=== PATIENT | female | born 1955 | race Caucasian/White ===

== ENCOUNTER → 2020-01-17 | Outpatient (REF) | payer MEDICARE, BC ==
[~2020-01-17] MED LIST: LOSA100T50 PO; SUMA6INJ16 SC
== END ==
LOC: M LAB REF 10:00
PROVIDERS: ATTEND Dermatology
DX: C44.519 Basal cell carcinoma of skin of other part of trunk (principal)
CPT/HCPCS: 11102; 17000; 88305; G0463

== ENCOUNTER → 2020-03-02 | Outpatient (REF) | payer MEDICARE, BC | LOC: M LAB REF 13:39 | PROVIDERS: ATTEND Dermatology | DX: C44.509 Unspecified malignant neoplasm of skin of other part of trunk (principal) ==

== ENCOUNTER → 2020-09-14 | Outpatient (REF) | payer MEDICARE, BC ==
[~2020-09-14] MED LIST changes: +D31000TA2 PO
== END ==
LOC: M LAB REF 17:37
PROVIDERS: ATTEND Dermatology
DX: L57.0 Actinic keratosis (principal)

== ENCOUNTER → 2020-09-20 | Outpatient (CLI) | payer BC, MEDICARE ==
[~2020-09-20] MED LIST changes: -D31000TA2 PO
--- NOTE | 2020-09-20 13:53 | REP ---
INDICATION: PAIN. COMPARISON: None. TECHNIQUE: Internal rotation, external rotation, axillary and Y-views of the right shoulder. FINDINGS: Mild cortical irregularity at the acromioclavicular joint. Subacromial space is normal. Glenohumeral joint is normal. No periarticular calcifications or loose bodies are identified. No acute fracture or dislocation. IMPRESSION: Minimal age-related changes. <Electronically signed by Toby Issa > 09/20/20 [id number]
== END ==
LOC: M SOG 10:00
PROVIDERS: ATTEND Orthopaedic Surgery Sports Medicine
DX: M75.41 Impingement syndrome of right shoulder (principal)

== ENCOUNTER → 2020-09-24 | Outpatient (CLI) | payer MEDICARE, BC ==
--- NOTE | 2020-09-24 12:19 | REPMRS ---
Patient History The patient states she has not had a clinical breast exam in over a year. Patient is postmenopausal and is nulliparous. Family history of colorectal cancer at age 67 in father. Took estrogen for 16 years beginning at age 34. Patient's BMI is 22.4. Patient states no breast complaints today. Patient has signed MRS History Sheet. Digital Woman Screen Mammo: September 24, 2020 - Exam #: [id number] Bilateral CC and MLO view(s) were taken. Technologist: Roxann Machado, [employer] Officer Prior study comparison: March 13, 2016, bilateral digital mammo screening bilat, performed at [facility]. February 27, 2015, bilateral digital mammo screening bilat, performed at [facility]. February 23, 2014, bilateral digital mammo screening bilat, performed at [facility]. FINDINGS: The breast tissue is heterogeneously dense. This may lower the sensitivity of mammography. The Volpara volumetric breast density category is: C. There is a moderate amount of heterogeneously dense fibroglandular tissue which is fairly symmetric. There is no interval development of dominant mass, architectural distortion, or grouped microcalcification typical of malignancy. There has been no change in the appearance of the mammogram from the prior studies. 3-D tomosynthesis shows no additional findings. Assessment: BI-RADS/ACR category 1 mammogram. Negative Mammogram. Recommendation Routine screening mammogram of both breasts in 1 year (for women over age 40). This patient's [facility] Lifetime Breast Cancer RIsk is estimated at 5.4 %. This mammogram was interpreted with the aid of an FDA-approved computer-aided dectection system. Electronically Signed By: Carlitos Mcfarland MD 09/24/20 [id number]
== END ==
LOC: M WHC 10:14
PROVIDERS: ATTEND Internal Medicine
DX: Z12.31 Encounter for screening mammogram for malignant neoplasm of breast (principal); M81.0 Age-related osteoporosis without current pathological fracture

== ENCOUNTER → 2020-10-12 | Outpatient (CLI) | payer MEDICARE, BC ==
[~2020-10-12] MED LIST changes: +D31000TA2 PO
== END ==
LOC: M LABSMTC 11:10
PROVIDERS: ATTEND Anesthesiology
DX: Z01.812 Encounter for preprocedural laboratory examination (principal); Z20.822 Contact with and (suspected) exposure to COVID-19

== ENCOUNTER 2020-10-17 06:45 | Day surgery (SDC) | payer MEDICARE, BC ==
[~2020-10-17] VITALS: Ht 172.7 cm; Wt 63.5 kg
[~2020-10-17 06:45] MED LIST changes: +NS 1,000 ML IV ONE
[2020-10-17] MEDS ORDERED: LIDOCAINE 2% 100MG/5ML SDV (FOR ANES.) As Ordered ONE (06:58)
[2020-10-17] MEDS ORDERED: propofoL 200 MG/20 ML VIAL As Ordered ONE (07:00)
--- NOTE | 2020-10-17 07:53 | ROOR ---
Patient Name: Anabela Salazar Procedure Date: 10/17/2020 7:33 AM Date of : 1955 Age: 65 Room: [facility] Gender: Female Note Status: Finalized Procedure: Total Colonoscopy to Cecum Indications: Colon cancer screening in patient at increased risk: Colorectal cancer in father, High risk colon cancer surveillance: Personal history of colonic polyps, Last colonoscopy: 2015 Providers: Chau Fragoso MD Referring MD: LOS CARLTON JR, MD Requesting Provider: Medicines: Monitored Anesthesia Care Complications: No immediate complications. Procedure: Pre-Anesthesia Assessment: - The heart rate, respiratory rate, oxygen saturations, blood pressure, adequacy of pulmonary ventilation, and response to care were monitored throughout the procedure. The Colonoscope was introduced through the anus and advanced to the cecum, identified by appendiceal orifice and ileocecal valve. The colonoscopy was performed without difficulty. The patient tolerated the procedure well. The quality of the bowel preparation was excellent. Findings: The perianal and digital rectal examinations were normal. Hemorrhoids were found during retroflexion. The hemorrhoids were small. Multiple small and large-mouthed diverticula were found in the entire colon. The exam was otherwise without abnormality on direct and retroflexion views. Impression: - Hemorrhoids. - Diverticulosis in the entire examined colon. - The examination was otherwise normal on direct and retroflexion views. - No specimens collected. - The exam was otherwise normal to the cecum. Recommendation: - Patient has a contact number available for emergencies. The signs and symptoms of potential delayed complications were discussed with the patient. Return to normal activities tomorrow. Written discharge instructions were provided to the patient. - High fiber diet. - Discharge patient to home. - Continue present medications. - Repeat colonoscopy in 5 years for surveillance. - Return to referring physician. - The findings and recommendations were discussed with the patient's family. Procedure Code(s): --- Professional --- G0105, Colorectal cancer screening; colonoscopy on individual at high risk Diagnosis Code(s): --- Professional --- Z80.0, Family history of malignant neoplasm of digestive organs Z86.010, Personal history of colonic polyps K64.9, Unspecified hemorrhoids K57.30, Diverticulosis of large intestine without perforation or abscess without bleeding CPT copyright 2019 [employer]. All rights reserved. The codes documented in this report are preliminary and upon scanning clerk review may be revised to meet current compliance requirements. Chau Fragoso MD Chau Fragoso MD 10/17/2020 7:53:36 AM Electronically signed by Chau Fragoso MD Number of Addenda: 0 Note Initiated On: 10/17/2020 7:33 AM Estimated Blood Loss: Estimated blood loss: none.
[2020-10-17 08:10] VITALS: BP 157/80
== END 2020-10-17 08:19 | disposition home or self-care (01) ==
LOC: M OPP 06:45
PROVIDERS: ATTEND Internal Medicine Gastroenterology
DX: Z12.11 Encounter for screening for malignant neoplasm of colon (principal); Z86.010 Personal history of colon polyps; Z80.0 Family history of malignant neoplasm of digestive organs; K57.30 Diverticulosis of large intestine without perforation or abscess without bleeding; K64.8 Other hemorrhoids; Z79.899 Other long term (current) drug therapy; Z88.1 Allergy status to other antibiotic agents; Z88.2 Allergy status to sulfonamides; Z88.8 Allergy status to other drugs, medicaments and biological substances; Z91.013 Allergy to seafood